=== PATIENT | male | born 1995 | race Caucasian/White ===

== ENCOUNTER 2020-12-07 18:40 | Inpatient (IN) | payer OTHER ==
[~2020-12-07] VITALS: Ht 185.4 cm; Wt 75.3 kg
[2020-12-07 19:58] LABS: MEAN CORPUSCULAR HEMOGLOBIN 30.5 pg (27.5-34.5); MEAN PLATELET VOLUME 8.8 fL (7.4-10.4); PLATELET COUNT 206 x10^3/uL (130-400); RED BLOOD COUNT 5.16 x10^6/uL (4.38-5.82); RED CELL DISTRIBUTION WIDTH 12.6 % (9.4-14.8)
[2020-12-07 20:09] LABS: ANION GAP 11 mmol/L (5-15); CALCIUM 10.1 mg/dL (8.5-10.1); CHLORIDE 97 mmol/L (98-107)
[2020-12-07 20:12] LABS: ALANINE AMINOTRANSFERASE 18 U/L (12-78); ALKALINE PHOSPHATASE 55 U/L (45-117); BILIRUBIN,TOTAL 1.2 mg/dL (0.2-1.0); CREATININE 1.14 mg/dL (0.7-1.3); TOTAL PROTEIN 8.1 g/dL (6.4-8.2)
[2020-12-07 20:28] LABS: BAND#(MANUAL) 0.24 x10^3/uL; BANDS%(MANUAL) 1 % (0-7); EOS#(MANUAL) 0.24 x10^3/uL (0.0-0.4); EOS% (MANUAL) 1 % (1-7); LYMPH#(MANUAL) 1.67 x10^3/uL (1-3.4); LYMPHS% (MANUAL) 7 % (22-44); MONOS#(MANUAL) 1.67 x10^3/uL (0.3-2.7); MONOS% (MANUAL) 7 % (2-9); SEG#(MANUAL) 20.08 x10^3/uL (1.8-6.8); SEGS% (MANUAL) 84 % (42-75)
[2020-12-07 20:29] LABS: <PLATELET ESTIMATE> ADEQUATE; <PLT MORPHOLOGY> NORMAL PLT MORPH
[2020-12-07 20:30] LABS: <RBC MORPHOLOGY> NORMAL
[2020-12-07] MEDS ORDERED: ONDANSETRON 2MG/ML, 2ML ONE (21:55)
[2020-12-07] MEDS ORDERED: MORPHINE SULFATE 4 MG/ML, 1ML ONE (21:55)
[2020-12-07] MEDS ORDERED: ACETAMINOPHEN 500 MG TABLET ONE (21:55)
[2020-12-07] MEDS ORDERED: SODIUM CHLORIDE FLUSH 10ML SYR IVF ONE (22:00)
[2020-12-07] MEDS ORDERED: SODIUM CHLORIDE 0.9% 1,000ML IVBOLUS ONE ×2 (22:00→23:30)
[2020-12-07] MEDS ORDERED: MORPHINE SULFATE 4 MG/ML, 1ML IVPush PRN (22:00)
[2020-12-07] MEDS ORDERED: ACETAMINOPHEN 500 MG TABLET PO ONE (22:00)
[2020-12-07] MEDS ORDERED: ONDANSETRON 2MG/ML, 2ML IVPush ONE (22:00)
[2020-12-07 22:38] LABS: MICROSCOPIC INDICATED
[2020-12-07] MEDS ORDERED: OMNIPAQUE 350 MG/ML, 100ML BOTTLE ONE (22:38)
[2020-12-07] MEDS ORDERED: PIPERACILLIN/TAZO 3.375 GM in DEXTROSE 5% 50 ML IVPB ONE (23:30)
--- NOTE | 2020-12-07 23:37 | NUR ---
abx given after blood culture draw
[2020-12-08] MEDS ORDERED: ONDANSETRON 2MG/ML, 2ML IVPush PRN ×2 (00:30→07:30)
[2020-12-08] MEDS ORDERED: BISACODYL 10 MG SUPP PR PRN (00:30)
[2020-12-08] MEDS ORDERED: KETOROLAC 30 MG/1 ML IV PRN (00:30)
[2020-12-08] MEDS ORDERED: LABETALOL 5MG/ML, 20ML IVPush PRN (00:30)
--- NOTE | 2020-12-08 00:57 | NUR ---
REPORT GIVEN TO FERN ROTH
[2020-12-08 01:27] VITALS: BP 119/75
[2020-12-08] MEDS: LACTATED RINGERS 1,000 ML IV SCH ×2 (01:37→16:05)
[2020-12-08] MEDS: morphine SULFATE 10 MG/ML, 1ML IVPush PRN ×2 (01:38→02:03)
[2020-12-08 01:49] VITALS: BP 128/78
[2020-12-08 05:33] LABS: BASOPHILS % (AUTO) 0 % (0-1); EOSINOPHILS % (AUTO) 0 % (1-7); LYMPHOCYTES % (AUTO) 6 % (22-44); MEAN CORPUSCULAR HEMOGLOBIN 30.4 pg (27.5-34.5); MEAN CORPUSCULAR HGB CONC 34.1 g/dL (33.2-36.2); MEAN PLATELET VOLUME 8.5 fL (7.4-10.4); MONOCYTES % (AUTO) 9 % (2-9); NEUTROPHILS % (AUTO) 86 % (42-75); PLATELET COUNT 148 x10^3/uL (130-400); RED BLOOD COUNT 4.34 x10^6/uL (4.38-5.82); RED CELL DISTRIBUTION WIDTH 12.7 % (9.4-14.8)
[2020-12-08 05:43] LABS: ALANINE AMINOTRANSFERASE 14 U/L (12-78); ALBUMIN 2.9 g/dL (3.4-5.0); ANION GAP 5 mmol/L (5-15); CALCIUM 8.6 mg/dL (8.5-10.1); CHLORIDE 106 mmol/L (98-107)
[2020-12-08 05:46] LABS: ALKALINE PHOSPHATASE 48 U/L (45-117); BILIRUBIN,TOTAL 0.9 mg/dL (0.2-1.0); CREATININE 1.08 mg/dL (0.7-1.3); TOTAL PROTEIN 6.3 g/dL (6.4-8.2)
[2020-12-08 06:14] LABS: INTERNATIONAL NORMALIZED RATIO 1.2 (0.93-1.1); PROTHROMBIN TIME 12.8 Seconds (9.6-11.5)
[2020-12-08 06:43] VITALS: BP 112/66
[2020-12-08] MEDS ORDERED: BUPIVACAINE/PF 0.5% ONE (06:44)
[2020-12-08] MEDS ORDERED: EPINEPHRINE 1 MG/ML, 1ML ONE (06:44)
[2020-12-08] MEDS ORDERED: MIDAZOLAM 1 MG/ML, 2ML ONE (06:57)
[2020-12-08] MEDS ORDERED: FENTANYL PF 100 MCG/2ML ONE ×3 (06:57→09:28)
[2020-12-08] MEDS ORDERED: CHLORHEXIDINE 15 ML UDC PO ONE (07:00)
[2020-12-08] MEDS ORDERED: NEOSTIGMINE 1 MG/ML, 10ML ONE (07:10)
[2020-12-08] MEDS ORDERED: ROCURONIUM 10MG/ML,5ML ONE (07:10)
[2020-12-08] MEDS ORDERED: CEFAZOLIN 1,000 MG ONE (07:10)
[2020-12-08] MEDS ORDERED: PROPOFOL 10 MG/ML, 20ML ONE (07:10)
[2020-12-08] MEDS ORDERED: GLYCOPYRROLATE 0.2MG/1ML, 5ML ONE (07:10)
[2020-12-08] MEDS ORDERED: SUCCINYLCHOLINE 20 MG/ML, 10ML ONE (07:10)
[2020-12-08] MEDS ORDERED: ONDANSETRON 2MG/ML, 2ML ONE (07:10)
[2020-12-08] MEDS ORDERED: PROMETHAZINE 25 MG/ML, 1ML IVPush PRN (07:30)
[2020-12-08] MEDS ORDERED: KETOROLAC 30 MG/1 ML IVPush PRN (07:30)
[2020-12-08] MEDS ORDERED: MEPERIDINE/PF 25MG/0.5ML IVPush PRN (07:30)
[2020-12-08] MEDS ORDERED: HYDROcodone/APAP 7.5-325MG/15ML UDC PO PRN (07:30)
[2020-12-08] MEDS ORDERED: HYDROmorphone 1 MG/ML, 1ML INJ IVPush PRN (07:30)
[2020-12-08] MEDS ORDERED: OXYcodone 5 MG/5 ML ORAL.SOL UDC PO PRN (07:30)
[2020-12-08] MEDS ORDERED: DEXAMETHASONE 4 MG/ML, 1ML ONE (07:37)
[2020-12-08] MEDS ORDERED: KETOROLAC 30 MG/1 ML ONE (09:28)
[2020-12-08] MEDS ORDERED: MEPERIDINE/PF 25MG/ML,1ML ONE (09:29)
[2020-12-08] MEDS ORDERED: OXYcodone 5 MG/5 ML ORAL.SOL UDC ONE (09:29)
[2020-12-08] MEDS: FENTANYL PF 100 MCG/2ML IV PRN ×2 (09:38→09:43)
[2020-12-08] MEDS ORDERED: DO NOT STOP ANTIBIOTICS AFTER 24HRS MC SCH (11:00)
[2020-12-08] MEDS ORDERED: ONDANSETRON 2MG/ML, 2ML IV PRN (11:00)
[2020-12-08] MEDS: PIPERACILLIN/TAZO 3.375 GM in DEXTROSE 5% 50 ML IVPB SCH ×2 (11:45→19:50)
[2020-12-08 12:21] VITALS: BP 113/79
[2020-12-08] MEDS ORDERED: ENOXAPARIN 40 MG/0.4 ML SQ SCH (14:00)
[2020-12-08] MEDS: OXYcodone/APAP 5/325MG TABLET PO PRN ×2 (14:36→19:03)
[2020-12-08 19:23] VITALS: BP 115/62
[2020-12-08] MEDS: KETOROLAC 30 MG/1 ML IV PRN (19:49)
[2020-12-09 00:01] VITALS: BP 102/62
[2020-12-09] MEDS: KETOROLAC 30 MG/1 ML IV PRN ×2 (02:19→09:13)
[2020-12-09] MEDS: OXYcodone/APAP 5/325MG TABLET PO PRN ×2 (02:19→09:13)
[2020-12-09 03:24] VITALS: BP 109/72
[2020-12-09] MEDS: PIPERACILLIN/TAZO 3.375 GM in DEXTROSE 5% 50 ML IVPB SCH ×2 (03:45→12:45)
[2020-12-09 05:23] LABS: BASOPHILS % (AUTO) 0 % (0-1); EOSINOPHILS % (AUTO) 0 % (1-7); LYMPHOCYTES % (AUTO) 8 % (22-44); MEAN CORPUSCULAR HEMOGLOBIN 30.7 pg (27.5-34.5); MEAN CORPUSCULAR HGB CONC 34.8 g/dL (33.2-36.2); MEAN PLATELET VOLUME 8.8 fL (7.4-10.4); MONOCYTES % (AUTO) 10 % (2-9); NEUTROPHILS % (AUTO) 82 % (42-75); PLATELET COUNT 145 x10^3/uL (130-400); RED BLOOD COUNT 4.03 x10^6/uL (4.38-5.82); RED CELL DISTRIBUTION WIDTH 12.7 % (9.4-14.8)
[2020-12-09 05:29] LABS: ALBUMIN 2.5 g/dL (3.4-5.0); ANION GAP 4 mmol/L (5-15); CALCIUM 8.7 mg/dL (8.5-10.1); CHLORIDE 105 mmol/L (98-107); CREATININE 0.75 mg/dL (0.7-1.3)
[2020-12-09 07:05] VITALS: BP 102/65
[2020-12-09] MEDS ORDERED: METR500T PO (12:45)
[2020-12-09] MEDS ORDERED: CIPR500T87 PO (12:45)
[2020-12-09] MEDS ORDERED: OXYC5TAB98 PO (12:45)
[2020-12-09 14:30] VITALS: BP 124/79
== END 2020-12-09 14:37 | disposition home or self-care (01) | DRG 853 ==
LOC: ED 23:44 → EDIP 12-08 00:26 → 4NE 12-08 01:12
PROVIDERS: ADMIT Internal Medicine; ATTEND Internal Medicine
PROC: 0WJG4ZZ Inspection of Peritoneal Cavity, Percutaneous Endoscopic Approach (ICD-10-PCS; 2020-12-08)
PROC: 0DTJ0ZZ Resection of Appendix, Open Approach (ICD-10-PCS; principal; 2020-12-08 07:30)
DX: A41.9 Sepsis, unspecified organism (principal); K35.33 Acute appendicitis with perforation, localized peritonitis, and gangrene, with abscess; E87.1 Hypo-osmolality and hyponatremia; Z20.822 Contact with and (suspected) exposure to COVID-19; E87.8 Other disorders of electrolyte and fluid balance, not elsewhere classified; R73.9 Hyperglycemia, unspecified; F17.210 Nicotine dependence, cigarettes, uncomplicated; K38.1 Appendicular concretions; K56.41 Fecal impaction; Z53.31 Laparoscopic surgical procedure converted to open procedure
CPT/HCPCS: 36415; 76870; 84145; 96374; 96375; 99291; S0020; 74177; 80048; 80053; 81001; 82040; 83605; 85025; 85610; 87040; 87635; 88304; G0378; J0171; J0690; J1100; J1650; J1885; J2175; J2250; J2405; J2543; J2704; J2710; J3010; Q9967; J0330; J2270; J7030; J7120